=== PATIENT | female | born 1940 | race Caucasian/White ===

== ENCOUNTER 2019-11-24 00:13 | Inpatient (IN) | payer MEDICARE, OTHER ==
[2019-11-22 08:00] VITALS: BP_SYST 115
[~2019-11-24] VITALS: Ht 165.1 cm; Wt 77.1 kg
[2019-11-24] MEDS ORDERED: AMLO10TA7 PO (01:30)
[2019-11-24] MEDS ORDERED: CLON0.1T TD (01:36)
[2019-11-24] MEDS ORDERED: CARV25TA2 PO (01:37)
[2019-11-24] MEDS ORDERED: TELM80TA9 PO (01:38)
[2019-11-24] MEDS ORDERED: HYDR25TA4 PO (01:38)
[2019-11-24] MEDS ORDERED: HYDR-4384 PO (01:39)
[2019-11-24] MEDS ORDERED: ASPI-1420 PO (01:41)
[2019-11-24] MEDS ORDERED: ONDA4TAB5 PO (01:43)
[2019-11-24] MEDS ORDERED: ESOM40CA PO (01:44)
[2019-11-24] MEDS ORDERED: MAG HYDROX/AL HYDROX/SIMETH 30 ML UDC PO PRN (02:00)
[2019-11-24] MEDS ORDERED: BLOOD SUGAR DIAGNOSTIC 1 EACH STRIP IN ONE (02:00)
[2019-11-24] MEDS ORDERED: MAGNESIUM HYDROXIDE 30 ML UDC PO PRN (02:00)
[2019-11-24] MEDS ORDERED: LORAZEPAM 1 MG TABLET PO PRN (02:00)
[2019-11-24 02:20] VITALS: BP 122/60
[2019-11-24] MEDS: ZOLPIDEM TARTRATE 5 MG TABLET PO PRN (02:36)
--- NOTE | 2019-11-24 02:37 | NUR ---
GPS RN NOTES: PT REQUESTED FOR SLEEP MEDICATION DUE TO INSOMNIA. AMBIEN 5MG/1TAB GIVEN PO ORDERED. WILL CONTINUE TO MONITOR.
--- NOTE | 2019-11-24 03:42 | NUR ---
GPS RN ADMITTING NOTE: ADMITTED A 79 Y/O FEMALE ON 11/24/2019 @ 0100. PT ARRIVED UNIT ON A STRETCHER ACCOMPANIED BY 2 EMT STAFF. PT IS ON A 5150 HOLD FOR DTS. PT WAS PLACED ON HOLD ON 11/22/2019 @ 1310, HOLD WILL ON 11/25/2019 @ 1310. PER HOLD, PT FAMILY FOUND HER ON THE FLOOR AFTER SHE ATTEMPTED SUICIDE BY USING BLADE TO CUT HER WRIST. UPON FACE TO FACE EVALUATION, PT PRESENTS A/O X3, COOPERATIVE, CALM, POLITE. PT SKIN ASSESSMENT DONE AND PICTURES TAKEN AND PLACED IN PATIENT CHART. ACCU CHEK DONE/BS 97MG/DL. PT BELONGINGS INVENTORIED AND CONTRABAND PLACED IN SAFE. PT UNABLE TO SIGN ADMISSION PAPERS. PT DENIES SI AT THIS TIME. PT MEDICAL HX IS HTN, GLAUCOMA, ARTHRITIS AND CHRONIC PAIN. PT WILL BE UNDER THE MEDICAL CARE OF SIVAN AND PSYCHIATRIC CARE OF DR RÍOS. BOTH HAVE BEEN INFORMED OF PT ADMISSION. PT ADVISED OF HIS HOLD. PT ORIENTED TO UNIT, STAFF AND DOCTORS. PTS RIGHTS HANDBOOK AND PRESCRIPTION MEDICATION GUIDE GIVEN TO PT. PT BED IS IN LOCKED, LOWEST POSITION, BED ALARM IS ON. CARE PLAN STARTED, ALL PT CARE NEEDS HAVE BEEN MET AT THIS TIME. PT REQUESTED FOR SLEEP MEDICATION, AMBIEN 5MG 1 TAB GIVEN PO ORDERED. PT IS CURRENTLY SLEEPING ON HER BED. NO S/S OF DISTRESS. WILL CONTINUE TO MONITOR Q15MIN AND Q1 HR ROUNDS FOR SAFETY MOOD AND BEHAVIOR AND ENDORSE TO AM SHIFT.
[2019-11-24] MEDS ORDERED: ONDANSETRON 4 MG TAB.RAPDIS PO PRN (04:00)
--- NOTE | 2019-11-24 06:42 | NUR ---
GPS RN CLOSING NOTES: PT LAYING ON BED SLEEPING COMFORTABLY. NO BEHAVIORAL ISSUES THIS SHIFT. SLEPT FOR 5HR. NO S/S OF DISTRESS. RESPIRATION EVEN AND UNLABORED WITH EQUAL RISE AND FALL OF THE SHIFT ON ROOM AIR. ALL PT CARE NEEDS MET ANTICIPATED. WILL CONTINUE TO MONITOR AND ENDORSE TO AM SHIFT.
--- NOTE | 2019-11-24 07:25 | NUR ---
GPS RN NOTES: PT REFUSED TO LET THIS NURSE REMOVE DRESSING ON LEFT WRIST TO ASSESS CUT. DRESSING INTACT. PICTURES TAKEN WITH DRESSING IN CHART.
[2019-11-24 07:53] LABS: BASOPHILS % (AUTO) 0.6 % (0.0-2.0); EOSINOPHILS % (AUTO) 1.3 % (0.0-6.0); HEMATOCRIT 22 % (33-45); HEMOGLOBIN 7.4 g/dL (11.5-14.8); LYMPHOCYTES # (AUTO) 1.4 /CMM (0.8-4.8); LYMPHOCYTES % (AUTO) 26.6 % (20.0-44.0); MEAN CORPUSCULAR HGB CONC 34 g/dl (31.0-36.0); MEAN CORPUSCULAR VOLUME 90 fL (82-100); MONOCYTES # (AUTO) 0.5 /CMM (0.1-1.30); MONOCYTES % (AUTO) 9.1 % (2.0-12.0); NEUTROPHILS # (AUTO) 3.4 /CMM (1.8-8.9); NEUTROPHILS % (AUTO) 62.4 % (43.0-81.0); PLATELET COUNT (AUTO) 126 /CMM (150-450); RED BLOOD CELL COUNT(AUTO) 2.44 MIL/uL (4.0-5.2); WHITE BLOOD COUNT (AUTO) 5.4 K/uL (4.3-11.0)
[2019-11-24 08:27] LABS: CALCIUM, SERUM 7.7 mg/dL (8.5-10.1); CREATININE 0.9 mg/dL (0.6-1.3); POTASSIUM 4.1 mmol/L (3.5-5.1)
[2019-11-24] MEDS: HYDROCHLOROTHIAZIDE 25 MG TABLET PO SCH (09:00)
[2019-11-24] MEDS: LOSARTAN POTASSIUM 50 MG TABLET PO SCH (09:00)
[2019-11-24] MEDS: AMLODIPINE BESYLATE 10 MG TABLET PO SCH (09:00)
--- NOTE | 2019-11-24 09:30 | NUR ---
RN PUT CALL OUT TO [employer] SALES AG[employer] REGARDING LOW HGB AND HCT.STATES HE WILL DO FURTHER STUDIES REGARDING ANEMIA.ADDITIONALLY MADE AWARE BLOOD COUNT WAS ALSO LOW FROM TRANSFERRING FACILITY.NO RDERS FOR NOW,SWEET DOUGH MIXER INFORMED.
--- NOTE | 2019-11-24 11:00 | NUR ---
SPOKE WITH PT'S DTR.
[2019-11-24] MEDS: ASPIRIN EC 81 MG TABLET.DR PO SCH (11:14)
[2019-11-24] MEDS: PANTOPRAZOLE 40 MG TABLET.DR PO SCH (11:15)
[2019-11-24] MEDS: CARVEDILOL 12.5 MG TABLET PO SCH ×2 (11:15→18:44)
[2019-11-24] MEDS: ACETAMINOPHEN 325 MG TABLET PO PRN (11:33)
--- NOTE | 2019-11-24 12:10 | NUR ---
PT. FINALLY WIDE AWAKE,C/O PAIN LT. HAND.NOTED LIMITED MOVEMENT,OT ORDERED AND GIVEN TYLENOL 650 MG PO.
--- NOTE | 2019-11-24 13:30 | NUR ---
DR. RÍOS HERE AND REQUESTING MADAN COLD ROLLER BE CALLED AND LOOK AT PT'S WRIST.
--- NOTE | 2019-11-24 13:38 | NUR ---
Sherita MORLEY BEEF TRIMMER HERE ON FLOOR ,REMOVED ORIGINAL PRESSURE DRSG. AND FINISHED REPAIR OF WRIST.PHOTO TAKEN.
[2019-11-24] MEDS ORDERED: HYDROCODONE/APAP 10/325MG TABLET PO PRN (14:00)
--- NOTE | 2019-11-24 14:00 | NUR ---
MEDICATED WITH NORCO 10 MG.
--- NOTE | 2019-11-24 14:49 | NUR ---
RT. ARM REWRAPPED AND SPLINT APPLIED.ARM ELEVATED.SECOND PHOTO TAKEN PRIOR TO REWRAPPING.
--- NOTE | 2019-11-24 14:55 | NUR ---
PT. TOLERATED PROCEDURE WELL.DRESSING DRY AND INTACT.
[2019-11-24 16:00] VITALS: BP 125/50
[2019-11-24] MEDS ORDERED: CEFTRIAXONE 1 G VIAL IV SCH (16:00)
[2019-11-24] MEDS ORDERED: HYDROCODONE/APAP 5/325MG TABLET PO PRN (16:00)
--- NOTE | 2019-11-24 18:00 | NUR ---
NO FURTHER C/O DISCOMFORT.
--- NOTE | 2019-11-24 18:30 | NUR ---
INSTRUCTED NOT TO GET OOB WITHOUT HELP.
[2019-11-24] MEDS: CEPHALEXIN MONOHYDRATE 500 MG CAPSULE PO SCH (18:43)
[2019-11-24] MEDS: CLINDAMYCIN HCL 150 MG CAPSULE PO SCH ×2 (18:43→23:01)
[2019-11-24 20:45] VITALS: BP 111/55
[2019-11-25] MEDS: CLINDAMYCIN HCL 150 MG CAPSULE PO SCH ×4 (06:12→23:01)
--- NOTE | 2019-11-25 07:02 | NUR ---
GPS RN OPENING NOTE RECEIVED PT RESTING IN BED AT THIS TIME, A/O X3, CALM, COOPERATIVE, DEPRESSED, COMPLIANT WITH STAFF AND MEDICATION REGIMENT/TREATMENT, AT THIS TIME. NO SOB NOTED, NO S/S OF ANY ACUTE DISTRESS NOTED. NO C/O PAIN AT THIS TIME. RESPIRATIONS ARE EVEN AND UNLABORED WITH EQUAL RISE AND FALL IN CHEST. PT DENIED SI/ AVH. SAFETY, PRECAUTION IN PLACE AND MAINTAINED AT ALL TIMES. BED IN LOWEST LOCKED POSITION, HOB ELEVATED, SIDE RAILS UP X 2, CALL LIGHT WITHIN REACH. WILL CONTINUE TO MONITOR Q15MIN FOR SAFETY AND BEHAVIOR
[2019-11-25 08:00] VITALS: BP 154/62
[2019-11-25 08:22] LABS: BASOPHILS % (AUTO) 0.5 % (0.0-2.0); EOSINOPHILS % (AUTO) 1.8 % (0.0-6.0); HEMATOCRIT 21 % (33-45); HEMOGLOBIN 7.1 g/dL (11.5-14.8); LYMPHOCYTES # (AUTO) 1.1 /CMM (0.8-4.8); LYMPHOCYTES % (AUTO) 20.5 % (20.0-44.0); MEAN CORPUSCULAR HGB CONC 34 g/dl (31.0-36.0); MEAN CORPUSCULAR VOLUME 90 fL (82-100); MONOCYTES # (AUTO) 0.4 /CMM (0.1-1.30); MONOCYTES % (AUTO) 6.8 % (2.0-12.0); NEUTROPHILS # (AUTO) 3.8 /CMM (1.8-8.9); NEUTROPHILS % (AUTO) 70.4 % (43.0-81.0); PLATELET COUNT (AUTO) 138 /CMM (150-450); RED BLOOD CELL COUNT(AUTO) 2.31 MIL/uL (4.0-5.2); WHITE BLOOD COUNT (AUTO) 5.4 K/uL (4.3-11.0)
[2019-11-25] MEDS: PANTOPRAZOLE 40 MG TABLET.DR PO SCH (08:33)
[2019-11-25] MEDS: ASPIRIN EC 81 MG TABLET.DR PO SCH (08:38)
[2019-11-25] MEDS: HYDROCHLOROTHIAZIDE 25 MG TABLET PO SCH (08:38)
[2019-11-25] MEDS: CARVEDILOL 12.5 MG TABLET PO SCH ×2 (08:39→17:04)
[2019-11-25] MEDS: AMLODIPINE BESYLATE 10 MG TABLET PO SCH (08:39)
[2019-11-25] MEDS: CEPHALEXIN MONOHYDRATE 500 MG CAPSULE PO SCH ×3 (08:40→17:03)
[2019-11-25] MEDS: DULOXETINE HCL 30 MG CAPSULE.DR PO SCH (08:40)
[2019-11-25] MEDS: LOSARTAN POTASSIUM 50 MG TABLET PO SCH (08:40)
[2019-11-25] MEDS: FERROUS SULFATE (325 MG) 325 MG/TAB TABLET PO SCH ×2 (12:25→17:02)
[2019-11-25] MEDS: ZINC SULFATE 220 MG CAPSULE PO SCH (12:25)
[2019-11-25] MEDS: MULTIVITAMINS,THERAGRAN 1 UDTAB TABLET PO SCH (12:25)
[2019-11-25] MEDS: POLYETHYLENE GLYCOL 3350 17 GM POWD.PACK PO SCH ×2 (12:26→21:09)
[2019-11-25 13:12] LABS: FERRITIN 71 ng/mL (8-388)
[2019-11-25 13:16] LABS: IRON, SERUM 15 ug/dl (50-175); TOTAL IRON BINDING CAPACITY 351 ug/dl (250-450)
[2019-11-25 16:00] VITALS: BP 131/59
--- NOTE | 2019-11-25 18:32 | NUR ---
GPS RN CLOSING NOTES PT RESTING IN BED AT THIS TIME. PT REMAINED STABLE THROUGHOUT SHIFT. ALL CARE, NEEDS, MEDICATIONS, AND TREATMENT ADMINISTERED ANTICIPATED PER ORDER. PT ABLE TO WIGGLE LEFT FINGERS, GOOD CIRCULATION, CAPILLARY REFILL < 3 SECONDS. PT KEPT CLEAN AND DRY. SAFETY PRECAUTION IN PLACE AND MAINTAINED AT ALL TIMES. BED IN LOWEST LOCKED POSITION, HOB ELEVATED, SIDE RAILS UP X 2, CALL LIGHT WITHIN REACH. WILL ENDORSE TO DIRECTOR OF RETENTION NURSE FOR MARCY
[2019-11-25 20:02] VITALS: BP 119/63
[2019-11-26] MEDS: CLINDAMYCIN HCL 150 MG CAPSULE PO SCH ×4 (06:14→23:07)
[2019-11-26 06:46] LABS: BASOPHILS % (AUTO) 0.5 % (0.0-2.0); EOSINOPHILS % (AUTO) 0.9 % (0.0-6.0); HEMATOCRIT 23 % (33-45); HEMOGLOBIN 7.7 g/dL (11.5-14.8); LYMPHOCYTES % (AUTO) 21.3 % (20.0-44.0); MEAN CORPUSCULAR HGB CONC 33 g/dl (31.0-36.0); MEAN CORPUSCULAR VOLUME 91 fL (82-100); MONOCYTES # (AUTO) 0.4 /CMM (0.1-1.30); MONOCYTES % (AUTO) 7.9 % (2.0-12.0); NEUTROPHILS # (AUTO) 3.4 /CMM (1.8-8.9); NEUTROPHILS % (AUTO) 69.4 % (43.0-81.0); PLATELET COUNT (AUTO) 154 /CMM (150-450); RED BLOOD CELL COUNT(AUTO) 2.54 MIL/uL (4.0-5.2); WHITE BLOOD COUNT (AUTO) 4.9 K/uL (4.3-11.0)
[2019-11-26] MEDS: PANTOPRAZOLE 40 MG TABLET.DR PO SCH (07:36)
[2019-11-26 08:00] VITALS: BP 111/60
[2019-11-26] MEDS: CEPHALEXIN MONOHYDRATE 500 MG CAPSULE PO SCH ×3 (08:31→16:26)
[2019-11-26] MEDS: ZINC SULFATE 220 MG CAPSULE PO SCH (08:31)
[2019-11-26] MEDS: FERROUS SULFATE (325 MG) 325 MG/TAB TABLET PO SCH ×2 (08:31→16:27)
[2019-11-26] MEDS: ASPIRIN EC 81 MG TABLET.DR PO SCH (08:31)
[2019-11-26] MEDS: LOSARTAN POTASSIUM 50 MG TABLET PO SCH (08:32)
[2019-11-26] MEDS: MULTIVITAMINS,THERAGRAN 1 UDTAB TABLET PO SCH (08:32)
[2019-11-26] MEDS: DULOXETINE HCL 30 MG CAPSULE.DR PO SCH (08:32)
[2019-11-26] MEDS: CARVEDILOL 12.5 MG TABLET PO SCH ×2 (08:32→16:27)
[2019-11-26] MEDS: HYDROCHLOROTHIAZIDE 25 MG TABLET PO SCH (08:33)
[2019-11-26] MEDS: AMLODIPINE BESYLATE 10 MG TABLET PO SCH (08:34)
--- NOTE | 2019-11-26 09:00 | NUR ---
RN NOTE- PT IN BED ALERT ORIENTED TO PERSON PLACE TIME AND PURPOSE. CURRENTLY DENIES SI HI AH VH. SPLINT ON LT HAND. PT CALM MED COMPLIANT INTERACTIVE PO INTAKE GOOD
[2019-11-26] MEDS: VENLAFAXINE XR 75 MG CAP.SR.24H PO SCH (09:58)
--- NOTE | 2019-11-26 12:15 | NUR ---
RN NOTE- GROUNDWATER MONITORING TECHNICIAN KACI MORLEY CHANGED DRESSING TO PTS LT WRIST. AREA W SUTURES, NO DEHISCENCE, MINOR ERYTHEMA, MINIMAL SEROUS DRAINAGE, WOUND EDGES WELL-APPROXIMATED. MINIMAL DISCOMFORT STATED. DRESSING APPLIED, WRAPPED W GAUZE, SPLINT APPLIED AND SECURED WITH ANJUM WRAP. TOLERATED WELL. MONITOR FOR SAFETY. MONITOR ANJUM WRAPS.
--- NOTE | 2019-11-26 13:52 | NUR ---
Family Contact: SW called the pts son, Mann ([phone]), and left a voicemail for the pts son to return.
--- NOTE | 2019-11-26 14:10 | NUR ---
Family Contact: SW called the pts daughter in law, Laura ([phone]), and informed her of the pts admission in the hospital. Pts daughter informed the SW that the pt told her that she wished the family would have walked in five minutes later because the deed would have been done. SW stated that the pt will not be safe at home and pts daughter stated that she wants her to live with her. SW stated that that she will speak to the pt and confirm the discharge plan once the MD has been notified.
--- NOTE | 2019-11-26 14:52 | NUR ---
Initial Discharge Plan: Pt currently resides at home located at [address] [place] [address]; ([phone]). Per pt, she would like to return to her home. GISSELL will work with the pt and the MD regarding appropriate discharge planning. SW will form a safe and proper plan.
[2019-11-26 16:00] VITALS: BP 139/51
[2019-11-26 20:27] VITALS: BP 116/56
[2019-11-26] MEDS: POLYETHYLENE GLYCOL 3350 17 GM POWD.PACK PO SCH (21:34)
[2019-11-26] MEDS: ZOLPIDEM TARTRATE 5 MG TABLET PO PRN (21:35)
[2019-11-27] MEDS: CLINDAMYCIN HCL 150 MG CAPSULE PO SCH ×4 (06:00→23:00)
[2019-11-27] MEDS: PANTOPRAZOLE 40 MG TABLET.DR PO SCH (07:36)
[2019-11-27 08:00] VITALS: BP 131/76
[2019-11-27] MEDS: LOSARTAN POTASSIUM 50 MG TABLET PO SCH (08:47)
[2019-11-27] MEDS: CEPHALEXIN MONOHYDRATE 500 MG CAPSULE PO SCH ×3 (08:48→16:27)
[2019-11-27] MEDS: MULTIVITAMINS,THERAGRAN 1 UDTAB TABLET PO SCH (08:48)
[2019-11-27] MEDS: ASPIRIN EC 81 MG TABLET.DR PO SCH (08:48)
[2019-11-27] MEDS: CARVEDILOL 12.5 MG TABLET PO SCH ×2 (08:48→16:27)
[2019-11-27] MEDS: HYDROCHLOROTHIAZIDE 25 MG TABLET PO SCH (08:48)
[2019-11-27] MEDS: ZINC SULFATE 220 MG CAPSULE PO SCH (08:48)
[2019-11-27] MEDS: AMLODIPINE BESYLATE 10 MG TABLET PO SCH (08:49)
[2019-11-27] MEDS: FERROUS SULFATE (325 MG) 325 MG/TAB TABLET PO SCH ×2 (08:49→16:27)
--- NOTE | 2019-11-27 09:00 | NUR ---
RN NOTE- PT SITTING IN BED INTERACTIVE CALM ORIENTED TO PERSON PLACE TIME PURPOSE CURRENTLY DENIES SI ,NEEDS ATTENDED. SPLINT IN PLACE TO LUE PULSES GOOD DISTALLY, CAP REFIL 3+, ANJUM WRAPS SECURE, NO C/O PAIN TO SUTURE SITE
[2019-11-27] MEDS: VENLAFAXINE XR 75 MG CAP.SR.24H PO SCH (09:13)
--- NOTE | 2019-11-27 10:18 | NUR ---
WOUND CARE CONSULT: PT PRESENTS WITH LEFT HAND/ARM DRESSING WITH SPLINT WHICH IS DRY AND INTACT. SPOKE TO KACI MORLEY DNP AND RECEIVED ORDERS TO KEEP DRESSING AND SPLINT IN PLACE AND THAT DRESSING CHANGES TO BE MANAGED KACI MORLEY DNP. DISCUSSED WITH NURSING STAFF.
[2019-11-27] MEDS: ACETAMINOPHEN 325 MG TABLET PO PRN (12:34)
--- NOTE | 2019-11-27 12:34 | NUR ---
RN NOTE- C/O HEADACHE. TYLENOL 650 MG GIVEN
--- NOTE | 2019-11-27 13:40 | NUR ---
RN NOTE- HEADACHE GONE. PT STATES MUCH BETTER. TYLENOL EFFECTIVE
[2019-11-27 16:00] VITALS: BP 109/48
[2019-11-27 20:13] VITALS: BP 129/63
[2019-11-27] MEDS: POLYETHYLENE GLYCOL 3350 17 GM POWD.PACK PO SCH (21:18)
[2019-11-28] MEDS: CLINDAMYCIN HCL 150 MG CAPSULE PO SCH ×4 (05:33→23:17)
[2019-11-28 08:00] VITALS: BP 120/53
[2019-11-28] MEDS: PANTOPRAZOLE 40 MG TABLET.DR PO SCH (08:13)
[2019-11-28] MEDS: CARVEDILOL 12.5 MG TABLET PO SCH ×2 (08:13→16:36)
[2019-11-28] MEDS: ZINC SULFATE 220 MG CAPSULE PO SCH (08:13)
[2019-11-28] MEDS: VENLAFAXINE XR 75 MG CAP.SR.24H PO SCH (08:13)
[2019-11-28] MEDS: MULTIVITAMINS,THERAGRAN 1 UDTAB TABLET PO SCH (08:13)
[2019-11-28] MEDS: FERROUS SULFATE (325 MG) 325 MG/TAB TABLET PO SCH ×2 (08:13→16:25)
[2019-11-28] MEDS: CEPHALEXIN MONOHYDRATE 500 MG CAPSULE PO SCH ×3 (08:13→16:25)
[2019-11-28] MEDS: ASPIRIN EC 81 MG TABLET.DR PO SCH (08:13)
[2019-11-28] MEDS: AMLODIPINE BESYLATE 10 MG TABLET PO SCH (08:14)
[2019-11-28] MEDS: HYDROCHLOROTHIAZIDE 25 MG TABLET PO SCH (08:14)
[2019-11-28] MEDS: LOSARTAN POTASSIUM 50 MG TABLET PO SCH (08:14)
--- NOTE | 2019-11-28 11:16 | NUR ---
Individual Intervention with the SW: SW met with the pt at bedside to discuss discharge disposition and informed the pt of her options. SW stated that the pt can either be placed in a facility with the assistance of the SW or the pt can choose to be discharged back to her son's home which has her daughter in law and two grandchildren. Pt stated that she wanted to return to her own home and the SW stated that right now the recommendation is not to have her live alone. Pt stated that she will live with her son because she will feel more comfortable being with her family members.
--- NOTE | 2019-11-28 11:26 | NUR ---
Family Contact: GISSELL called the pts daughter in law, Laura ([phone]), and informed her that the pt agreed to be discharged to their home from the hospital and GISSELL stated that she will inform her when the MD provides a DC date.
--- NOTE | 2019-11-28 14:19 | NUR ---
GROUP THERAPY: SW encouraged pt to attend group on this day, pt was asleep and not easily roused by verbal cues.
[2019-11-28 14:49] VITALS: BP 144/70
[2019-11-28 14:52] VITALS: BP 102/61
[2019-11-28 16:00] VITALS: BP 127/51
[2019-11-28 20:12] VITALS: BP 128/66
[2019-11-28] MEDS: POLYETHYLENE GLYCOL 3350 17 GM POWD.PACK PO SCH (21:26)
--- NOTE | 2019-11-28 21:26 | NUR ---
GPS RN NOTE PT REFUSED SCHEDULED MIRALAX, PT STATED SHE DOES NOT NEED IT SHE HAS USED THE RESTROOM. WILL CONTINUE TO MONITOR Q15MIN FOR SAFETY AND BEHAVIOR.
[2019-11-28] MEDS: ZOLPIDEM TARTRATE 5 MG TABLET PO PRN (22:12)
--- NOTE | 2019-11-28 22:16 | NUR ---
GPS RN NOTE: INSOMNIA PT REQUESTED SOMETHING FOR SLEEP, PT STATED SHE WAS HAVING DIFFICULTY FALLING ASLEEP AND HAS NOT FELT RESTED. ADMIN ANH ROBBINSN AT 2212, WILL REASSESS AND CONTINUE TO MONITOR Q15MIN FOR SAFETY AND BEHAVIOR.
[2019-11-29] MEDS: CLINDAMYCIN HCL 150 MG CAPSULE PO SCH ×4 (06:30→23:11)
[2019-11-29 06:50] LABS: BASOPHILS % (AUTO) 0.7 % (0.0-2.0); EOSINOPHILS % (AUTO) 2.6 % (0.0-6.0); HEMATOCRIT 23 % (33-45); HEMOGLOBIN 7.6 g/dL (11.5-14.8); LYMPHOCYTES # (AUTO) 1.3 /CMM (0.8-4.8); LYMPHOCYTES % (AUTO) 24.8 % (20.0-44.0); MEAN CORPUSCULAR HGB CONC 33 g/dl (31.0-36.0); MEAN CORPUSCULAR VOLUME 93 fL (82-100); MONOCYTES # (AUTO) 0.5 /CMM (0.1-1.30); MONOCYTES % (AUTO) 8.9 % (2.0-12.0); NEUTROPHILS # (AUTO) 3.4 /CMM (1.8-8.9); PLATELET COUNT (AUTO) 200 /CMM (150-450); RED BLOOD CELL COUNT(AUTO) 2.46 MIL/uL (4.0-5.2); WHITE BLOOD COUNT (AUTO) 5.4 K/uL (4.3-11.0)
[2019-11-29] MEDS: PANTOPRAZOLE 40 MG TABLET.DR PO SCH (07:55)
[2019-11-29 08:00] VITALS: BP 130/62
[2019-11-29] MEDS: ASPIRIN EC 81 MG TABLET.DR PO SCH (09:19)
[2019-11-29] MEDS: CEPHALEXIN MONOHYDRATE 500 MG CAPSULE PO SCH ×3 (09:19→17:09)
[2019-11-29] MEDS: ZINC SULFATE 220 MG CAPSULE PO SCH (09:19)
[2019-11-29] MEDS: LOSARTAN POTASSIUM 50 MG TABLET PO SCH (09:19)
[2019-11-29] MEDS: FERROUS SULFATE (325 MG) 325 MG/TAB TABLET PO SCH ×2 (09:20→17:14)
[2019-11-29] MEDS: CARVEDILOL 12.5 MG TABLET PO SCH ×2 (09:20→17:10)
[2019-11-29] MEDS: MULTIVITAMINS,THERAGRAN 1 UDTAB TABLET PO SCH (09:20)
[2019-11-29] MEDS: VENLAFAXINE XR 75 MG CAP.SR.24H PO SCH (09:20)
[2019-11-29] MEDS: AMLODIPINE BESYLATE 10 MG TABLET PO SCH (09:20)
[2019-11-29] MEDS: HYDROCHLOROTHIAZIDE 25 MG TABLET PO SCH (09:28)
--- NOTE | 2019-11-29 13:35 | NUR ---
PC HEARING NOTIFICATION: GISSELL contacted pts daughter in law, Laura ([phone]) to inform her of pts PC HEARING on this day. SW informed her that pts 14 day hold was upheld and informed that as of today MD has not given a tentative discharge date for pt. GISSELL informed daughter in law that pt remains isolative and withdrawn and refuses to attend group milieu. Daughter in law requested a call from pts psychiatrist and SW transferred call to munitions factory worker.
[2019-11-29 16:11] VITALS: BP 121/66
[2019-11-29 19:53] VITALS: BP 108/54
[2019-11-29] MEDS: POLYETHYLENE GLYCOL 3350 17 GM POWD.PACK PO SCH (21:50)
[2019-11-29] MEDS: ZOLPIDEM TARTRATE 5 MG TABLET PO PRN (22:00)
--- NOTE | 2019-11-29 22:05 | NUR ---
GPS RN NOTE: INSOMNIA PT C/O OF DIFFICULTY SLEEPING, REQUESTED SLEEPING MEDICATION. ADMIN ANH ROBBINSN @ 2200, WILL REASSESS AND CONTINUE TO MONITOR Q15MIN FOR SAFETY AND BEHAVIOR.
[2019-11-30] MEDS: CLINDAMYCIN HCL 150 MG CAPSULE PO SCH ×4 (06:12→23:26)
[2019-11-30] MEDS: PANTOPRAZOLE 40 MG TABLET.DR PO SCH (07:44)
[2019-11-30 08:00] VITALS: BP 126/69
[2019-11-30] MEDS: VENLAFAXINE XR 75 MG CAP.SR.24H PO SCH (08:31)
[2019-11-30] MEDS: ZINC SULFATE 220 MG CAPSULE PO SCH (08:31)
[2019-11-30] MEDS: CEPHALEXIN MONOHYDRATE 500 MG CAPSULE PO SCH ×3 (08:31→16:49)
[2019-11-30] MEDS: FERROUS SULFATE (325 MG) 325 MG/TAB TABLET PO SCH ×2 (08:31→16:49)
[2019-11-30] MEDS: MULTIVITAMINS,THERAGRAN 1 UDTAB TABLET PO SCH (08:31)
[2019-11-30] MEDS: ASPIRIN EC 81 MG TABLET.DR PO SCH (08:31)
[2019-11-30] MEDS: CARVEDILOL 12.5 MG TABLET PO SCH ×2 (08:32→16:50)
[2019-11-30] MEDS: AMLODIPINE BESYLATE 10 MG TABLET PO SCH (08:32)
[2019-11-30] MEDS: LOSARTAN POTASSIUM 50 MG TABLET PO SCH (08:33)
--- NOTE | 2019-11-30 09:00 | NUR ---
RN NOTE- PT ALERT ORIENTED TO PERSON PLACE TIME PURPOSE, DENIES SI HI AH VH, GOOD EYE CONTACT INITIATES DISCUSSION, MED COMPLIANT, KACI MORLEY TO SEE PT WRIST AND CHANGE DRESSING, DR REGALADO TO CALL KACI MORLEY AND DISCUSS TX FOR WRIST PER CAT DOG OR OTHER PET GROOMER. DIGITS WARM, CAP REFILL GOOD, NO PAIN STATED, DRESSING AND SPLINT IN PLACE
--- NOTE | 2019-11-30 11:59 | NUR ---
GROUP THERAPY: SW encouraged pt to attend group therapy on this present day. Pt refused to attend stating that she was cold and wanted to remain in her bed. SW encouraged pts participating in group milieu and pt stated she attends groups and walks around the unit. SW assessed for suicidality. Pt denies suicidal ideation and states she wishes to be discharged home soon.
[2019-11-30 16:02] VITALS: BP 112/56
--- NOTE | 2019-11-30 17:57 | NUR ---
RN NOTE- PT CONCERNED ABOUT HAVING REPATHA INJECTION THAT SHE HAD TAKEN AT HOME FOR CHOLESTEROL. TOLD HER DR HAS HER ON A STATIN ALREADY. PT RECEIVING LIPITOR. INFORMED FAMILY WELL.
[2019-11-30 19:35] VITALS: BP 105/50
[2019-11-30 19:40] VITALS: BP 105/50
[2019-11-30] MEDS: ZOLPIDEM TARTRATE 5 MG TABLET PO PRN (21:20)
--- NOTE | 2019-11-30 21:23 | NUR ---
GPS RN NOTE: INSOMNIA PATIENT VERBALIZED THAT SHE IS UNABLE TO SLEEP & REQUESTED TO TAKE SLEEPING MEDICINE. PRN AMBIEN 5 MG 1 TAB PO GIVEN. WILL CONTINUE TO MONITOR.
[2019-11-30] MEDS: POLYETHYLENE GLYCOL 3350 17 GM POWD.PACK PO SCH (21:44)
--- NOTE | 2019-11-30 21:44 | NUR ---
GPS RN NOTE: REFUSED MIRALAX PATIENT REFUSED TO TAKE MIRALAX, STATED," I HAD BM TODAY, I DON'T WANT TO TAKE IT TONIGHT." DESPITE OF EXPLANATIONS, PATIENT CONTINUED TO REFUSE X3.
[2019-12-01] MEDS: CLINDAMYCIN HCL 150 MG CAPSULE PO SCH ×4 (06:25→23:01)
[2019-12-01 08:01] VITALS: BP 119/60
[2019-12-01] MEDS: PANTOPRAZOLE 40 MG TABLET.DR PO SCH (08:16)
[2019-12-01] MEDS: ZINC SULFATE 220 MG CAPSULE PO SCH (08:17)
[2019-12-01] MEDS: CEPHALEXIN MONOHYDRATE 500 MG CAPSULE PO SCH ×3 (08:17→17:08)
[2019-12-01] MEDS: ASPIRIN EC 81 MG TABLET.DR PO SCH (08:17)
[2019-12-01] MEDS: VENLAFAXINE XR 75 MG CAP.SR.24H PO SCH (08:17)
[2019-12-01] MEDS: FERROUS SULFATE (325 MG) 325 MG/TAB TABLET PO SCH ×2 (08:17→17:09)
[2019-12-01] MEDS: MULTIVITAMINS,THERAGRAN 1 UDTAB TABLET PO SCH (08:22)
[2019-12-01] MEDS: CARVEDILOL 12.5 MG TABLET PO SCH ×2 (09:43→17:09)
[2019-12-01] MEDS: LOSARTAN POTASSIUM 50 MG TABLET PO SCH (09:43)
[2019-12-01 16:00] VITALS: BP 118/65
[2019-12-01 20:03] VITALS: BP 124/55
[2019-12-01 20:20] VITALS: BP 124/55
[2019-12-01] MEDS: POLYETHYLENE GLYCOL 3350 17 GM POWD.PACK PO SCH (21:41)
[2019-12-01] MEDS: ZOLPIDEM TARTRATE 5 MG TABLET PO PRN (23:15)
[2019-12-02] MEDS: CLINDAMYCIN HCL 150 MG CAPSULE PO SCH ×6 (05:16→23:04)
[2019-12-02] MEDS: PANTOPRAZOLE 40 MG TABLET.DR PO SCH (07:42)
[2019-12-02 08:00] VITALS: BP 117/62
[2019-12-02] MEDS: LOSARTAN POTASSIUM 50 MG TABLET PO SCH (08:16)
[2019-12-02] MEDS: VENLAFAXINE XR 75 MG CAP.SR.24H PO SCH (08:16)
[2019-12-02] MEDS: CEPHALEXIN MONOHYDRATE 500 MG CAPSULE PO SCH ×3 (08:16→16:39)
[2019-12-02] MEDS: FERROUS SULFATE (325 MG) 325 MG/TAB TABLET PO SCH ×2 (08:16→16:39)
[2019-12-02] MEDS: CARVEDILOL 12.5 MG TABLET PO SCH ×2 (08:16→16:39)
[2019-12-02] MEDS: ZINC SULFATE 220 MG CAPSULE PO SCH (08:16)
[2019-12-02] MEDS: ASPIRIN EC 81 MG TABLET.DR PO SCH (08:16)
[2019-12-02] MEDS: MULTIVITAMINS,THERAGRAN 1 UDTAB TABLET PO SCH (08:21)
--- NOTE | 2019-12-02 09:00 | NUR ---
RN NOTE- PT DEPRESSED, WITHDRAWN, ALERT ORIENTED TO PERSON PLACE TIME AND PURPOSE, DENIES SI HI AH VH, NEEDS ATTENDED, PO INTAKE GOOD. SPOKE W FAMILY REGARDING CARE AND UPDATE, FAMILY SUPPORTIVE
[2019-12-02 16:00] VITALS: BP 144/63
--- NOTE | 2019-12-02 19:31 | NUR ---
GPS RN OPENING NOTES RECEIVED PATIENT RESTING IN BED COMFORTABLY; A/OX2-3, PATIENT AWAKE AND LAYING IN BED; NO S/S OF COMPLAINTS OF PAIN AT THIS TIME; NO DISTRESS NOTED; PATIENT BREATHING EVEN AND UNLABORED, TOLERATING ROOM AIR WELL; PATIENT IS COOPERATIVE; PER AM SHIFT, KACI MORLEY, KENNEL WORKER WILL COME SOMETIME TONIGHT TO ASSESS PATIENT'S SUTURED WOUND ON L HAND; PATIENT DENIES SUICIDAL IDEATIONS AND HOMICIDAL IDEATIONS AT THIS TIME; PATIENT EDUCATED ON THE USE OF CALL LIGHT, SAFETY PRECAUTIONS IMPLEMENTED; BED LOCKED IN LOW POSITION, SIDE RAILSX2; WILL CONTINUE TO MONITOR Q15 MIN WITH HELP OF STAFF TO MAINTAIN SAFETY
--- NOTE | 2019-12-02 19:34 | NUR ---
GPS RN NOTE, PATIENT NEEDS HER LEFT WRIST WOUND CHECKED AND TO HAVE HER DRESSING CHANGED. PATIENT HAS PROMPT CAPILLARY REFILL < 2 SECONDS AND A REGULAR L RADIAL PULSE. PAGED [facility] AND INFORMED KT Wood DNP OF MY FINDING. KT Wood DNP STATED, " YES I'LL DO IT TONIGHT. I AM THE ONE WHO SUTURED IT. I'LL BE THERE TONIGHT SOMETIME ". WILL CONTINUE TO MONITOR THIS PATIENT WITH THE HELP OF STAFF.
[2019-12-02 20:00] VITALS: BP 125/58
[2019-12-02] MEDS: POLYETHYLENE GLYCOL 3350 17 GM POWD.PACK PO SCH (21:14)
[2019-12-02] MEDS: ZOLPIDEM TARTRATE 5 MG TABLET PO PRN (23:07)
[2019-12-03] MEDS: CLINDAMYCIN HCL 150 MG CAPSULE PO SCH ×4 (05:28→23:17)
[2019-12-03] MEDS: PANTOPRAZOLE 40 MG TABLET.DR PO SCH (07:19)
[2019-12-03 08:00] VITALS: BP 138/82
[2019-12-03] MEDS: MULTIVITAMINS,THERAGRAN 1 UDTAB TABLET PO SCH (08:23)
[2019-12-03] MEDS: ZINC SULFATE 220 MG CAPSULE PO SCH (08:24)
[2019-12-03] MEDS: ASPIRIN EC 81 MG TABLET.DR PO SCH (08:24)
[2019-12-03] MEDS: LOSARTAN POTASSIUM 50 MG TABLET PO SCH (08:24)
[2019-12-03] MEDS: CARVEDILOL 12.5 MG TABLET PO SCH ×2 (08:24→16:50)
[2019-12-03] MEDS: CEPHALEXIN MONOHYDRATE 500 MG CAPSULE PO SCH ×3 (08:24→16:49)
[2019-12-03] MEDS: VENLAFAXINE XR 75 MG CAP.SR.24H PO SCH (08:24)
[2019-12-03] MEDS: FERROUS SULFATE (325 MG) 325 MG/TAB TABLET PO SCH ×2 (08:25→16:49)
--- NOTE | 2019-12-03 09:00 | NUR ---
RN NOTE- MORE INTERACTIVE, SMILING OCCASIONALLY, PT DEPRESSED, WITHDRAWN, ALERT ORIENTED TO PERSON PLACE TIME AND PURPOSE, DENIES SI HI AH VH, NEEDS ATTENDED, PO INTAKE GOOD.
--- NOTE | 2019-12-03 09:26 | NUR ---
RN NOTE- TEXT KACI MORLEY CREAMERY WORKER THIS MORNING AT 0750 REGARDING DRESSING CHANGE LEFT WRIST . NO REPLY. DR RÍOS AT UNIT NOW ASKING ABOUT SAME. WE ATTEMPTED TO CONTACT KACI MORLEY AGAIN. NO RESPONSE. DR RÍOS STATED THAT HE WANTS KACI MORLEY TO FOLLOW UP ON WOUND.
--- NOTE | 2019-12-03 10:06 | NUR ---
Family Contact: GISSELL called the pts daughter in law, Laura ([phone]), and informed her that the pt is going to be discharged to her home sometime this week per the MD but we do not have a specific date at this time. GISSELL stated that she will keep her updated and also follow up on the psychiatrist referrals that she provided to the daughter in law as the daughter in law is having a difficult time making contact.
--- NOTE | 2019-12-03 15:40 | NUR ---
RN NOTE- LEFT WRIST SUTURE SITE. CHEL HERNANDEZ NOTIFIED THAT DRESSING HAS REMAINED UNCHANGED FOR TEN DAYS. KACI MORLEY WEB CONTENT MANAGER NOTIFIED EARLIER THIS AM. CHEL HERNANDEZ CAME AND REMOVED DRESSING, EVALUATED. SURGICAL INCISION SITE APPEARS TO BE HEALING WELL, EDGES WELL-APPROXIMATED, NO DEHISCENCE, NO DRAINAGE, NO ODOR, NO ERYTHEMA, PURULENCE OR WARMTH. CHEL HERNANDEZ HAD THIS RN REDRESS SUTURE SITE W PETROLEUM GAUZE, COVER W 4X4S, WRAP W KERLEX AND APPLY HARD SPLINT. SECURED IN PLACE BY ANJUM WRAPS. KACI MORLEY NOTIFIED AND PHOTO SENT. STATED 'LOOKS GOOD. ILL COME BY TO REMOVE SUTURES SOON.' PT TOLERATED WELL.
[2019-12-03 16:00] VITALS: BP 126/55
[2019-12-03 16:58] VITALS: BP 138/63
[2019-12-03 16:59] VITALS: BP 120/65
[2019-12-03 19:42] VITALS: BP 144/82
[2019-12-03 20:02] VITALS: BP 144/82
--- NOTE | 2019-12-03 21:00 | NUR ---
NURSE NOTES: ALERT AND ORIENATED TO PLACE SITUATION TIME. REQUESTED A SLEEPING PILL FOR THE NIGHT. AWARE SHE IS RECEIVING ATB FOR THE CUT LEFT ARM/ LEFT HAND WARM FINGERS MOVING AND CAPILLARY REFILL < 3 SECONDS DENIES PAIN. SHE IS COOPERATIVE AND GOOS EYE CONTACT SMILING
[2019-12-03] MEDS: ZOLPIDEM TARTRATE 5 MG TABLET PO PRN (21:22)
[2019-12-03] MEDS: POLYETHYLENE GLYCOL 3350 17 GM POWD.PACK PO SCH (21:23)
[2019-12-04] MEDS: CLINDAMYCIN HCL 150 MG CAPSULE PO SCH ×4 (05:57→23:00)
[2019-12-04] MEDS: PANTOPRAZOLE 40 MG TABLET.DR PO SCH (07:11)
[2019-12-04 08:00] VITALS: BP 137/72
[2019-12-04] MEDS: ASPIRIN EC 81 MG TABLET.DR PO SCH (08:40)
[2019-12-04] MEDS: MULTIVITAMINS,THERAGRAN 1 UDTAB TABLET PO SCH (08:40)
[2019-12-04] MEDS: CEPHALEXIN MONOHYDRATE 500 MG CAPSULE PO SCH ×4 (08:40→16:14)
[2019-12-04] MEDS: ZINC SULFATE 220 MG CAPSULE PO SCH (08:40)
[2019-12-04] MEDS: VENLAFAXINE XR 75 MG CAP.SR.24H PO SCH (08:40)
[2019-12-04] MEDS: FERROUS SULFATE (325 MG) 325 MG/TAB TABLET PO SCH ×2 (08:40→16:14)
[2019-12-04] MEDS: LOSARTAN POTASSIUM 50 MG TABLET PO SCH (08:43)
[2019-12-04] MEDS: CARVEDILOL 12.5 MG TABLET PO SCH ×2 (08:43→16:14)
--- NOTE | 2019-12-04 09:00 | NUR ---
RN NOTE- PT CALM INTERACTIVE SMILING ENGAGES THOUGH DOES KEEP TO SELF IN ROOM, PO INTAKE FAIR, MED COMPLIANT, SPLINT TO LEFT WRIST FINGERS WARM, CAPILLARY REFILL > 3 SEC, PERIPHERAL PULSES +, DENIES PAIN OR DISCOMFORT AT ALL. ALERT AND ORIENTED X PERSON PLACE TIME PURPOSE
--- NOTE | 2019-12-04 11:22 | NUR ---
Individual Intervention with the pt and the MD: SW met with the pt at bedside with the pts MD and informed the pt that she is going to be discharged to her son's home soon. Pt stated that she felt more safe in the hospital and the MD stated that she has more time and will be discharged on Tuesday.
--- NOTE | 2019-12-04 11:29 | NUR ---
Family Contact: GISSELL called the pts daughter in law, Laura ([phone]), and informed her that the pt will be discharged on Tuesday. She stated that she wanted to speak to the MD to address her concerns. GISSELL stated that she will pass along the message.
[2019-12-04 16:00] VITALS: BP 132/64
[2019-12-04 19:56] VITALS: BP 131/72
[2019-12-04] MEDS: ZOLPIDEM TARTRATE 5 MG TABLET PO PRN (21:22)
[2019-12-04] MEDS: POLYETHYLENE GLYCOL 3350 17 GM POWD.PACK PO SCH (21:22)
--- NOTE | 2019-12-04 21:30 | NUR ---
GPS RN NOTE PT C/O OF INSOMNIA REQUESTED SLEEPING MEDICATION, VSS ADMIN AMBIEN @ 2121, WILL REASSESS AND CONTINUE TO MONITOR Q15MIN FOR SAFETY AND BEHAVIOR
[2019-12-05] MEDS: CLINDAMYCIN HCL 150 MG CAPSULE PO SCH ×2 (06:11→12:37)
[2019-12-05] MEDS: PANTOPRAZOLE 40 MG TABLET.DR PO SCH (06:43)
[2019-12-05 08:00] VITALS: BP 107/67
[2019-12-05] MEDS: FERROUS SULFATE (325 MG) 325 MG/TAB TABLET PO SCH ×2 (08:40→17:28)
[2019-12-05] MEDS: ASPIRIN EC 81 MG TABLET.DR PO SCH (08:40)
[2019-12-05] MEDS: CEPHALEXIN MONOHYDRATE 500 MG CAPSULE PO SCH ×2 (08:41→13:10)
[2019-12-05] MEDS: VENLAFAXINE XR 75 MG CAP.SR.24H PO SCH (08:41)
[2019-12-05] MEDS: CARVEDILOL 12.5 MG TABLET PO SCH ×3 (08:41→17:28)
[2019-12-05] MEDS: LOSARTAN POTASSIUM 50 MG TABLET PO SCH (08:41)
[2019-12-05] MEDS: ZINC SULFATE 220 MG CAPSULE PO SCH (08:50)
[2019-12-05] MEDS: MULTIVITAMINS,THERAGRAN 1 UDTAB TABLET PO SCH (08:50)
--- NOTE | 2019-12-05 09:09 | NUR ---
WOUND CARE CONSULT: PT SEEN ON REQUEST OF NURSING STAFF FOR PERINEAL IRRITATION AND REDNESS. RECOMMENDATIONS MADE FOR SKIN CARE AND PROTECTION. DISCUSSED WITH NURSING STAFF. MD IN AGREEMENT WITH PLAN OF CARE.
--- NOTE | 2019-12-05 09:12 | NUR ---
C/O BURNING AND ITCHING IN PERINEAL AREA,WD NURSE IN TO SEE PT. ORDERS TO BE GIVEN.
[2019-12-05] MEDS: CLOTRIMAZOLE 1% 15 GM TUBE TP SCH ×2 (11:42→17:27)
[2019-12-05 16:00] VITALS: BP 132/69
[2019-12-05 16:41] LABS: BASOPHILS % (AUTO) 0.6 % (0.0-2.0); EOSINOPHILS % (AUTO) 2.7 % (0.0-6.0); HEMATOCRIT 27 % (33-45); HEMOGLOBIN 8.8 g/dL (11.5-14.8); LYMPHOCYTES # (AUTO) 1.4 /CMM (0.8-4.8); LYMPHOCYTES % (AUTO) 21.7 % (20.0-44.0); MEAN CORPUSCULAR HGB CONC 33 g/dl (31.0-36.0); MEAN CORPUSCULAR VOLUME 94 fL (82-100); MONOCYTES # (AUTO) 0.5 /CMM (0.1-1.30); MONOCYTES % (AUTO) 8.1 % (2.0-12.0); NEUTROPHILS # (AUTO) 4.2 /CMM (1.8-8.9); NEUTROPHILS % (AUTO) 66.9 % (43.0-81.0); PLATELET COUNT (AUTO) 279 /CMM (150-450); RED BLOOD CELL COUNT(AUTO) 2.84 MIL/uL (4.0-5.2); WHITE BLOOD COUNT (AUTO) 6.3 K/uL (4.3-11.0)
--- NOTE | 2019-12-05 18:00 | NUR ---
STATES QUITE A BIT OF RELIEF FROM LOTRISONE.
--- NOTE | 2019-12-05 19:00 | NUR ---
Eran TINOCO MEDICARE COORDINATOR IN AND ORDERS GIVEN.
[2019-12-05 20:00] VITALS: BP 138/70
[2019-12-05] MEDS: ZOLPIDEM TARTRATE 5 MG TABLET PO PRN (21:35)
[2019-12-05] MEDS: POLYETHYLENE GLYCOL 3350 17 GM POWD.PACK PO SCH (21:36)
[2019-12-06 08:00] VITALS: BP 136/68
[2019-12-06] MEDS: ZINC SULFATE 220 MG CAPSULE PO SCH (08:22)
[2019-12-06] MEDS: LOSARTAN POTASSIUM 50 MG TABLET PO SCH (08:23)
[2019-12-06] MEDS: ASPIRIN EC 81 MG TABLET.DR PO SCH (08:23)
[2019-12-06] MEDS: FERROUS SULFATE (325 MG) 325 MG/TAB TABLET PO SCH ×2 (08:24→16:23)
[2019-12-06] MEDS: CARVEDILOL 12.5 MG TABLET PO SCH ×2 (08:24→16:23)
[2019-12-06] MEDS: MULTIVITAMINS,THERAGRAN 1 UDTAB TABLET PO SCH (08:24)
[2019-12-06] MEDS: PANTOPRAZOLE 40 MG TABLET.DR PO SCH (08:24)
[2019-12-06] MEDS: VENLAFAXINE XR 75 MG CAP.SR.24H PO SCH (08:24)
[2019-12-06] MEDS: CLOTRIMAZOLE 1% 15 GM TUBE TP SCH ×2 (09:58→16:56)
--- NOTE | 2019-12-06 11:05 | NUR ---
RN-CO; DR HERNANDEZ MADE THAT PATIENT HAS A C/O VAGINAL ITCH. AWAITING FOR ORDERS.
--- NOTE | 2019-12-06 11:20 | NUR ---
John MILLIGAN in the unit and examined the pt.
--- NOTE | 2019-12-06 11:25 | NUR ---
RN-CO: PT WAS SEEN AND EXAMINED BY DR HERNANDEZ W/ ORDERS NOTED.
[2019-12-06] MEDS ORDERED: FLUCONAZOLE (100 MG) 100 MG TABLET PO ONE (11:30)
[2019-12-06 14:23] LABS: APPEARANCE,URINE CLEAR (CLEAR); BILIRUBIN,URINE NEGATIVE (NEGATIVE); BLOOD, URINE NEGATIVE Ery/uL (NEGATIVE); COLOR,URINE YELLOW (YELLOW); KETONES,URINE NEGATIVE (NEGATIVE); LEUKOCYTE ESTERASE ,URINE SMALL (NEGATIVE); NITRITE, URINE NEGATIVE (NEGATIVE); PROTEIN,URINE NEGATIVE (NEGATIVE); UGLUCOSE NEGATIVE (NEGATIVE)
[2019-12-06 15:05] LABS: RBC,URINE 0-2 /HPF (0-2)
[2019-12-06 15:06] LABS: BACTERIA,URINE 1+ /HPF (None Seen); SQUAMOUS EPITHELIAL CELL,UR 0-2 /HPF (None Seen); URINE AMORPHOUS PHOSPHATES Few /HPF (None Seen)
--- NOTE | 2019-12-06 15:32 | NUR ---
John MILLIGAN in the unit and said he is aware of the UA result
[2019-12-06 16:00] VITALS: BP 137/67
[2019-12-06 20:18] VITALS: BP 141/77
[2019-12-06] MEDS: POLYETHYLENE GLYCOL 3350 17 GM POWD.PACK PO SCH ×2 (21:03→22:00)
[2019-12-06] MEDS: ZOLPIDEM TARTRATE 5 MG TABLET PO PRN (21:13)
--- NOTE | 2019-12-06 21:13 | NUR ---
GPS-RN NOTE: INSOMNIA PATIENT C/O INABILITY TO SLEEP. ADMINISTERED AMBIEN 5MG PO ORDERED. WILL CONTINUE TO MONITOR FOR PT'S SAFETY.
[2019-12-07 08:07] VITALS: BP 158/86
[2019-12-07] MEDS: ZINC SULFATE 220 MG CAPSULE PO SCH (08:40)
[2019-12-07] MEDS: FERROUS SULFATE (325 MG) 325 MG/TAB TABLET PO SCH ×2 (08:41→16:26)
[2019-12-07] MEDS: MULTIVITAMINS,THERAGRAN 1 UDTAB TABLET PO SCH (08:41)
[2019-12-07] MEDS: VENLAFAXINE XR 75 MG CAP.SR.24H PO SCH (08:41)
[2019-12-07] MEDS: CARVEDILOL 12.5 MG TABLET PO SCH ×2 (08:42→16:27)
[2019-12-07] MEDS: LOSARTAN POTASSIUM 50 MG TABLET PO SCH (08:42)
[2019-12-07] MEDS: PANTOPRAZOLE 40 MG TABLET.DR PO SCH (08:42)
[2019-12-07] MEDS: ASPIRIN EC 81 MG TABLET.DR PO SCH (08:42)
[2019-12-07] MEDS: CLOTRIMAZOLE 1% 15 GM TUBE TP SCH ×2 (09:39→16:26)
--- NOTE | 2019-12-07 12:47 | NUR ---
Family Contact: SW called the pts daughter in law, Laura ([phone]), who stated that she will pick the pt up around 11AM on Tuesday.
[2019-12-07 14:12] VITALS: BP 130/67
[2019-12-07 14:15] VITALS: BP 102/56
--- NOTE | 2019-12-07 14:32 | NUR ---
GPS RN NOTE: ORTHOSTATIC BP DONE RECORDED IN VS CHARTING .
[2019-12-07 16:00] VITALS: BP 118/58
[2019-12-07 19:56] VITALS: BP 141/75
[2019-12-07] MEDS: POLYETHYLENE GLYCOL 3350 17 GM POWD.PACK PO SCH (21:59)
[2019-12-07] MEDS: ZOLPIDEM TARTRATE 5 MG TABLET PO PRN (22:02)
[2019-12-08 08:00] VITALS: BP 151/71
[2019-12-08] MEDS: LOSARTAN POTASSIUM 50 MG TABLET PO SCH (08:20)
[2019-12-08] MEDS: ASPIRIN EC 81 MG TABLET.DR PO SCH (08:21)
[2019-12-08] MEDS: ZINC SULFATE 220 MG CAPSULE PO SCH (08:21)
[2019-12-08] MEDS: PANTOPRAZOLE 40 MG TABLET.DR PO SCH (08:22)
[2019-12-08] MEDS: CARVEDILOL 12.5 MG TABLET PO SCH ×2 (08:22→16:55)
[2019-12-08] MEDS: MULTIVITAMINS,THERAGRAN 1 UDTAB TABLET PO SCH (08:22)
[2019-12-08] MEDS: VENLAFAXINE XR 75 MG CAP.SR.24H PO SCH (08:22)
[2019-12-08] MEDS: FERROUS SULFATE (325 MG) 325 MG/TAB TABLET PO SCH ×2 (08:22→16:54)
[2019-12-08] MEDS: CLOTRIMAZOLE 1% 15 GM TUBE TP SCH ×2 (08:26→16:56)
--- NOTE | 2019-12-08 13:15 | NUR ---
RN NOTES REMOVED STITCHES ON THE RIGHT WRIST BY JE MOLINA, APPLIED STERIL STRIPS, AND FIXED WITH KERLIX, PICTURE TAKEN.
[2019-12-08 16:00] VITALS: BP 129/69
[2019-12-08 21:00] VITALS: BP 141/67
[2019-12-08] MEDS: POLYETHYLENE GLYCOL 3350 17 GM POWD.PACK PO SCH (21:55)
[2019-12-08] MEDS: ZOLPIDEM TARTRATE 5 MG TABLET PO PRN (21:56)
--- NOTE | 2019-12-09 07:01 | NUR ---
GPS RN CLOSING NOTES: PT LAYING ON BED AWAKE AND ALERT. SLEPT 7HR THIS SHIFT. NO S/S OF DISTRESS. RESPIRATION EVEN AND UNLABORED WITH EQUAL RISE AND FALL OF THE CHEST ON ROOM AIR. PT WAS MED COMPLIANT THIS SHIFT. ALL PT CARE NEEDS MET ANTICIPATED. BED IS LOCKED AND IN LOWEST POSITION. WILL CONTINUE TO MONITOR AND ENDORSE TO AM SHIFT
[2019-12-09 08:00] VITALS: BP 137/75
[2019-12-09] MEDS: MULTIVITAMINS,THERAGRAN 1 UDTAB TABLET PO SCH (08:46)
[2019-12-09] MEDS: PANTOPRAZOLE 40 MG TABLET.DR PO SCH (08:46)
[2019-12-09] MEDS: ASPIRIN EC 81 MG TABLET.DR PO SCH (08:46)
[2019-12-09] MEDS: VENLAFAXINE XR 75 MG CAP.SR.24H PO SCH (08:46)
[2019-12-09] MEDS: ZINC SULFATE 220 MG CAPSULE PO SCH (08:46)
[2019-12-09] MEDS: FERROUS SULFATE (325 MG) 325 MG/TAB TABLET PO SCH ×2 (08:46→16:35)
[2019-12-09] MEDS: CARVEDILOL 12.5 MG TABLET PO SCH ×2 (08:47→16:35)
[2019-12-09] MEDS: CLOTRIMAZOLE 1% 15 GM TUBE TP SCH ×2 (08:50→16:36)
[2019-12-09] MEDS: LOSARTAN POTASSIUM 50 MG TABLET PO SCH (08:54)
[2019-12-09 16:00] VITALS: BP 122/61
[2019-12-09 20:24] VITALS: BP 131/55
[2019-12-09] MEDS: POLYETHYLENE GLYCOL 3350 17 GM POWD.PACK PO SCH (22:03)
[2019-12-09] MEDS: ZOLPIDEM TARTRATE 5 MG TABLET PO PRN (22:04)
--- NOTE | 2019-12-10 06:22 | NUR ---
GPS RN CLOSING NOTES: PT LAYING ON BED SLEEPING. WEEKLY SKIN ASSESSMENT DONE, PICTURES TAKEN PLACED IN PATIENT CHART. NO NEW SKIN ISSUES NOTED. SLEPT 9HR THIS SHIFT. NO S/S OF DISTRESS. RESPIRATION EVEN AND UNLABORED WITH EQUAL RISE AND FALL OF THE CHEST ON ROOM AIR. ALL PT CARE NEEDS MET ANTICIPATED. BED IS LOCKED AND IN LOWEST POSITION. WILL CONTINUE TO MONITOR AND ENDORSE TO AM SHIFT.
[2019-12-10 06:52] LABS: BASOPHILS # (AUTO) 0.1 /CMM (0.0-0.2); EOSINOPHILS % (AUTO) 2.2 % (0.0-6.0); HEMATOCRIT 29 % (33-45); HEMOGLOBIN 9.4 g/dL (11.5-14.8); LYMPHOCYTES # (AUTO) 1.4 /CMM (0.8-4.8); LYMPHOCYTES % (AUTO) 23.4 % (20.0-44.0); MEAN CORPUSCULAR HGB CONC 33 g/dl (31.0-36.0); MEAN CORPUSCULAR VOLUME 94 fL (82-100); MONOCYTES # (AUTO) 0.4 /CMM (0.1-1.30); NEUTROPHILS # (AUTO) 3.9 /CMM (1.8-8.9); NEUTROPHILS % (AUTO) 66.4 % (43.0-81.0); PLATELET COUNT (AUTO) 282 /CMM (150-450); RED BLOOD CELL COUNT(AUTO) 3.04 MIL/uL (4.0-5.2); WHITE BLOOD COUNT (AUTO) 5.9 K/uL (4.3-11.0)
[2019-12-10 07:21] LABS: CALCIUM, SERUM 8.8 mg/dL (8.5-10.1); CREATININE 0.7 mg/dL (0.6-1.3); POTASSIUM 4.5 mmol/L (3.5-5.1)
[2019-12-10 08:00] VITALS: BP 148/76
[2019-12-10] MEDS: FERROUS SULFATE (325 MG) 325 MG/TAB TABLET PO SCH (08:15)
[2019-12-10] MEDS: VENLAFAXINE XR 75 MG CAP.SR.24H PO SCH (08:15)
[2019-12-10] MEDS: MULTIVITAMINS,THERAGRAN 1 UDTAB TABLET PO SCH (08:15)
[2019-12-10] MEDS: PANTOPRAZOLE 40 MG TABLET.DR PO SCH (08:15)
[2019-12-10] MEDS: ZINC SULFATE 220 MG CAPSULE PO SCH (08:15)
[2019-12-10 08:16] VITALS: BP 148/76
[2019-12-10] MEDS: CARVEDILOL 12.5 MG TABLET PO SCH (08:16)
[2019-12-10] MEDS: LOSARTAN POTASSIUM 50 MG TABLET PO SCH (08:16)
[2019-12-10] MEDS: ASPIRIN EC 81 MG TABLET.DR PO SCH (08:16)
[2019-12-10] MEDS: CLOTRIMAZOLE 1% 15 GM TUBE TP SCH (08:17)
--- NOTE | 2019-12-10 08:27 | NUR ---
SW Discharge Note: Pt will be discharged to her sons home located at [address] [place] [address]. Pt will be picked up by her daughter in law, Laura ([phone]), around 11AM. Upon discharge, the pt appears to be in a euthymic mood and presents with a calm affect. Pt denied suicidal and homicidal ideation as well as auditory and visual hallucinations. Pt appears to be alert and oriented x4 (time, place, self and situation). Pt appears to be well groomed and appropriately dressed. Pt is ambulatory with an unsteady gait. Pt will be under the care of psychiatrist, Dr. Carolina Becker located at [address] [facility], [address], [place] [address]; and pt has an appointment on 12/25/19 at 1pm. Pt will also be under the care of her kier hand, Dr. Michelle, located at [address] [facility] [address], [place] [address]; and pt has an appointment on 12/19/19 at 11am.
--- NOTE | 2019-12-10 11:15 | NUR ---
HEAD BUTLER NOTES A 79 YEAR OLD FEMALE DISCHARGED IN STABLE CONDITION, A/O X4, ABLE TO MAKE NEEDS KNOWN. COMPLIANT WITH MEDICATIONS, COOPERATIVE WITH TREATMENT PLANS. V/S TAKEN, STABLE AND RECORDED. NAME ARM BAND REMOVED. NO SIGNS OF DISTRESS NOTED AT THIS TIME, PATIENT DENIES SI/HI AT THIS TIME AND INSTRUCTED TO GO TO NEAREST EMERGENCY ROOM IF DEVELOPING SI/HI. WOUND DRESSING CHANGED, PICTURES TAKEN LAST NIGHT. ALL BELONGINGS CHECKED AND SIGNED. MEDICATION RECONCILED WITH DR. RÍOS AND JESSE HERNANDEZ DNP. NO IV ACCESS. SPOKE TO PATIENT AND FAMILY TO EXPLAINED HEALTH TEACHINGS/DISCHARGED INSTRUCTIONS. VERBALIZED UNDERSTANDING. PATIENT ASSISTED TO THE LOBBY AND WAS PICKED UP BY DAUGHTER. CHARGE NURSE AWARE OF DISCHARGED.
== END 2019-12-10 11:15 | disposition home or self-care (01) | DRG 876 ==
LOC: GPS 00:13
PROVIDERS: ADMIT Psychiatry & Neurology Psychiatry; ATTEND Nurse Practitioner Acute Care
PROC: 0MQ60ZZ Repair Left Wrist Bursa and Ligament, Open Approach (ICD-10-PCS; principal; 2019-11-24)
DX: F32.2 Major depressive disorder, single episode, severe without psychotic features (principal); D62 Acute posthemorrhagic anemia; M19.90 Unspecified osteoarthritis, unspecified site; S61.512A Laceration without foreign body of left wrist, initial encounter; X58.XXXA Exposure to other specified factors, initial encounter; Y92.89 Other specified places as the place of occurrence of the external cause; Z73.6 Limitation of activities due to disability; S61.512D Laceration without foreign body of left wrist, subsequent encounter; X78.9XXD Intentional self-harm by unspecified sharp object, subsequent encounter; H40.9 Unspecified glaucoma; I25.10 Atherosclerotic heart disease of native coronary artery without angina pectoris; I10 Essential (primary) hypertension; K21.9 Gastro-esophageal reflux disease without esophagitis; Z81.8 Family history of other mental and behavioral disorders; G47.00 Insomnia, unspecified; F29 Unspecified psychosis not due to a substance or known physiological condition; B37.3 Candidiasis of vulva and vagina; E86.1 Hypovolemia
CPT/HCPCS: 36415; 80048-TC; 80061-TC; 81000-TC; 82728-TC; 82962-TC; 83540-TC; 85025-TC; 87081-TC; 97110-TC; 97116-TC; 97530-TC; A6403